=== PATIENT | male | born 1960 | race Caucasian/White ===

== ENCOUNTER 2017-02-02 11:26 | Inpatient (IN) | payer BC ==
--- NOTE | 2017-02-02 12:19 | PDOC ---
History of Present Illness - General History Source: Patient, Family (Daughter), Old Records Exam Limitations: No Limitations - History of Present Illness Initial Comments: 02/02/17 12:44 The patient is a 56-year-old man, accompanied by his daughter, with a significant past medical history of hypertension, seizure disorder, right lower extremity deep venous thrombosis (on Coumadin) and left kidney donor transplant who presents to the emergency department via walk-in for further evaluation of loss of consciousness. Information was obtained by patient's daughter. As per daughter, the patient was standing, getting ready for his morning shower when he fell back and injured his head and loss consciousness for a brief period of time. Patient's daughter states that he had a seizure. Patient is back at baseline, but reports exquisite back pain. He took two hydrocodone tablets this morning without relief. No associated symptoms of chest pain, SOB, dizziness, lightheadedness or palpitations, nausea, vomiting, diarrhea, fever, chills, cough, visual changes, tongue biting, bowel/bladder incontinence or recent head injury. <Sri Sandhu - Last Filed: 02/02/17 15:34> - General History Source: Patient Exam Limitations: No Limitations <Yoko Rao - Last Filed: 02/02/17 16:44> - General Chief Complaint: Seizure Stated Complaint: fall/ BACK PAIN Time Seen by Provider: 02/02/17 12:04 Past History <Sri Sandhu - Last Filed: 02/02/17 15:34> - Past Medical History HTN: Yes Seizures: Yes Other medical history: rle dvt - Psycho/Social/Smoking Cessation Hx Suicidal Ideation: No Smoking Status: No Smoking History: Never smoked Number of Cigarettes Smoked Daily: 0 Hx Alcohol Use: No Drug/Substance Use Hx: No <Yoko Rao - Last Filed: 02/02/17 16:44> - Past Medical History Allergies/Adverse Reactions: Allergies Allergy/AdvReac Type Severity Reaction Status Date / Time No Known Allergies Allergy Verified 02/02/17 11:44 Home Medications: Ambulatory Orders Atorvastatin Ca [Lipitor] 10 mg PO HS 02/02/17 Cholecalciferol (Vitamin D3) [Vitamin D3] 50,000 unit PO WEEKLY 02/02/17 Edoxaban Tosylate [Savaysa] 60 mg PO DAILY 02/02/17 Hydrocodone/Acetaminophen [Lortab 5-325 mg Tablet] 1 each PO BID 02/02/17 LamoTRIgine [LaMICtal] 150 mg PO BID 02/02/17 Levetiracetam [Levetiracetam ER] 1,000 mg PO BID 02/02/17 Nebivolol [Bystolic -] 5 mg PO DAILY 02/02/17 Review of Systems - Review of Systems Able to Perform ROS?: Yes Comments:: 02/02/17 12:44 GENERAL/CONSTITUTIONAL: No: fever, chills, weakness, loss of appetite. HEAD, EYES, EARS, NOSE AND THROAT: No: change in vision, ear pain, discharge, sore throat, throat swelling. CARDIOVASCULAR: No: chest pain, lightheadedness, palpitations, syncope RESPIRATORY: No: cough, shortness of breath, wheezing, hemoptysis, stridor. GASTROINTESTINAL: No: nausea, vomiting, abdominal cramping, diarrhea, rectal bleeding, constipation. GENITOURINARY: No: dysuria, hematuria, frequency, urgency, flank pain. MUSCULOSKELETAL: Yes: Back Pain. No: neck pain, joint pain, muscle swelling or pain SKIN AND BREASTS: No: lesions, pallor, rash or easy bruising. NEUROLOGIC: Yes: Seizure No: vertigo, paresthesias, weakness ENDOCRINE: No: unexplained weight gain or loss HEMATOLOGIC/LYMPHATIC: No: anemia, easy bleeding, swelling nodes <Sri Sandhu - Last Filed: 02/02/17 15:34> *Physical Exam - Vital Signs Last Vital Signs Temp Pulse Resp BP Pulse Ox 97.7 F 87 18 133/76 100 02/02/17 11:45 02/02/17 11:45 02/02/17 11:45 02/02/17 11:45 02/02/17 11:45 - Physical Exam Comments: 02/02/17 12:44 GENERAL: Awake. Alert. The patient is in no acute distress. HEAD: +There is some redness to the back of the head. EYES: PERRLA, EOMI, sclera anicteric, conjunctiva clear. ENT: Ears normal, nares patent, oropharynx clear without exudates. Moist mucous membranes. NECK: Normal range of motion, supple without lymphadenopathy, JVD, or masses. LUNGS: Breath sounds equal, clear to auscultation bilaterally. No wheezes, and no crackles. HEART: Regular rate and rhythm, normal S1 and S2 without murmur, rub or gallop. ABDOMEN: Soft, nontender, normoactive bowel sounds. No guarding, no rebound. EXTREMITIES: Normal range of motion, no edema. No clubbing or cyanosis. No erythema, or tenderness. NEUROLOGICAL: Cranial nerves II through XII grossly intact. Normal speech. No focal neurological deficits. MUSCULOSKELETAL: There is some lumbar midline and paraspinal tenderness to palpation. No CVA tenderness SKIN: Warm, Dry, normal turgor, no rashes or lesions noted. <Sri Sandhu - Last Filed: 02/02/17 15:34> - Vital Signs Last Vital Signs Temp Pulse Resp BP Pulse Ox 97.7 F 87 18 133/76 100 02/02/17 11:45 02/02/17 11:45 02/02/17 11:45 02/02/17 11:45 02/02/17 11:45 <Yoko Rao - Last Filed: 02/02/17 16:44> Heart Score/ECG Review #1 ECG reviewed & interpreted by me at: 16:43 General ECG Interpretation: Sinus Rhythm, Normal Rate, Normal Intervals, No acute ischemic changes <Yoko Rao - Last Filed: 02/02/17 16:44> ED Treatment Course - LABORATORY CBC & Chemistry Diagram: 02/02/17 13:00 02/02/17 13:00 - RADIOLOGY Radiograph Interpretation: 02/02/17 15:34 EXAM: RAD/SPINE-LUMBAR SACRAL Interpreted by Dr. Javad Case IMPRESSION: The AP view shows 5 lumbar type vertebral bodies with L5 having very wide transverse processes. Could this represent a transitional body with attempted sacralization? The paraspinal soft tissues appear intact. There is a left-sided clips by L2. The SI joints are patent. Lateral and spot lateral view show loss of lordosis with degenerative changes and vertebral wedging. L3 shows a new compression that was not evident in the prior study of 12/30/2011. This could be the source of the patient's back pain. EXAM: CT/CERVICAL SPINE CT W/O CONTR Interpreted by Dr. Javad Case IMPRESSION: Sequential axial images were obtained to the cervical spine from the base of the skull to the thoracic inlet. Coronal and sagittal reconstructed images were also obtained. There is no evidence of fracture, subluxation or acute bony abnormalities. Moderate degenerative arthritic changes are noted at C6-7. The spinal canal is widely patent with no evidence of cord compromise. EXAM: CT/HEAD CT WITHOUT CONTRAST Interpreted by Dr. Bishop Casiano IMPRESSION: Sequential axial images were obtained from the base of the skull to the vertex. There is no evidence of acute intracranial hemorrhage, mass lesions or infarctions. 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 This appearance has not changed since a prior study of 04/30/2010. There is no evidence of fracture or acute bony abnormalities. <Sri Sandhu - Last Filed: 02/02/17 15:34> - LABORATORY CBC & Chemistry Diagram: 02/02/17 13:00 02/02/17 13:00 <Yoko Rao - Last Filed: 02/02/17 16:44> Medical Decision Making - Medical Decision Making 02/02/17 15:[address] Presley Arevalo <Sri Sandhu - Last Filed: 02/02/17 15:34> - Medical Decision Making 02/02/17 12:19 A portion of this note was documented by scribe services under my direction. I have reviewed the details of the note, within reason, and agree with the documentation with the following case summary and management plan written by me. Nursing documentation reviewed and incorporated into medical decision making 02/02/17 15:57 This patient is a 56-year-old male with a history of seizure disorder, who presents emergency department status post seizure versus syncopal event this morning. Patient has very little memory of the event, after either seizing or syncopized and he fell backwards in the bathroom striking his back and his head. Patient's daughter attempted to give him pain his own pain medications to improve his pain but this did not help No fevers No chills No chest pain No palpitations DD: Seizure, syncope, vasovagal episode, dehydration, ACS will do labs Head CT Will give pain medications Will do xray lumbar spine 02/02/17 15:58 Laboratory Tests 02/02/17 02/02/17 13:00 13:00 WBC 9.2 Hgb 15.3 Hct 45.9 Plt Count 140 Neutrophils % 79.5 Lymphocytes % 10.8 BUN 20 H Creatinine 1.0 Xray: L3 compression fracture Head CT: no acute intracranial hemorrhage Cervical Spine CT: degenerative changes C6, C7 02/02/17 16:[address] Arevalo Will admit to tele <Yoko Rao - Last Filed: 02/02/17 16:44> *DC/Admit/Observation/Transfer - Attestations Scribe Attestion: 02/02/17 12:44 Documentation prepared by Sri Sandhu, acting as medical engineer for Yoko Rao MD. <Sri Sandhu - Last Filed: 02/02/17 15:34> - Discharge Dispostion Admit: Yes <Yoko Rao - Last Filed: 02/02/17 16:44> Diagnosis at time of Disposition: Seizure - Discharge Dispostion Condition at time of disposition: Stable
[2017-02-02] MEDS ORDERED: HYDROmorphone HCL CARPU-JECT 1 MG/1 ML DISP.SYRIN IVPB ONE (12:29)
[2017-02-02] MEDS ORDERED: METHOCARBAMOL 500 MG TABLET PO ONE (12:38)
[2017-02-02] MEDS ORDERED: HYDROmorphone HCL CARPU-JECT 1 MG/1 ML DISP.SYRIN ONE (12:47)
[2017-02-02] MEDS ORDERED: METHOCARBAMOL 500 MG TABLET ONE (12:49)
[2017-02-02 13:03] LABS: BASOPHIL 0.4 % (0-2.0); EOSINOPHIL 0.4 % (0-4.5); MCH 30.2 pg (25.7-33.7); MCHC 33.4 g/dl (32.0-35.9); MEAN CELL VOLUME 90.3 fl (80-96); MEAN PLT VOLUME 8.5 fl (7.5-11.1); NEUTROPHILS 79.5 % (42.8-82.8); PLATELET COUNT 140 K/MM3 (134-434); RDW 13.4 % (11.9-15.9); WHITE BLOOD COUNT 9.2 K/mm3 (4.0-10.0)
[2017-02-02 13:31] LABS: CALCIUM 9.2 mg/dL (8.5-10.1); COCKROFT - GAULT 73.87
[2017-02-02 16:55] LABS: TROPONIN I 0.03 ng/ml (0.00-0.05)
[2017-02-02] MEDS ORDERED: PATIENT'S OWN MEDICATION (NON-FORMULARY) (Lamotrigine [Lamictal] 150 MG) PO SCH (22:00)
[2017-02-02] MEDS ORDERED: levETIRAcetam 500 MG TABLET (FP) PO ONE (22:07)
[2017-02-02] MEDS: LAMOTRIGINE 100 MG, LAMOTRIGINE 50 MG PO SCH (22:27)
[2017-02-02] MEDS: ATORVASTATIN CA 10 MG TABLET (FP) PO SCH (22:27)
[2017-02-02] MEDS: levETIRAcetam XR 500 MG TAB PO SCH (22:27)
[2017-02-03] MEDS ORDERED: ONDANSETRON 4 MG/2 ML VIAL ONE (02:14)
[2017-02-03] MEDS ORDERED: HYDROmorphone HCL CARPU-JECT 1 MG/1 ML DISP.SYRIN ONE (02:14)
[2017-02-03] MEDS: HYDROmorphone HCL CARPU-JECT 1 MG/1 ML DISP.SYRIN IVPUSH PRN ×2 (02:30→18:20)
[2017-02-03] MEDS ORDERED: ONDANSETRON 4 MG/2 ML VIAL IVPUSH ONE (02:30)
[2017-02-03] MEDS: NEBIVOLOL 5 MG TABLET (FP) PO SCH ×2 (02:32→12:00)
[2017-02-03 07:14] LABS: BASOPHIL 0.4 % (0-2.0); EOSINOPHIL 1.8 % (0-4.5); MCH 30.1 pg (25.7-33.7); MCHC 33.4 g/dl (32.0-35.9); MEAN PLT VOLUME 8.4 fl (7.5-11.1); NEUTROPHILS 60.2 % (42.8-82.8); PLATELET COUNT 134 K/MM3 (134-434); RDW 13.6 % (11.9-15.9); WHITE BLOOD COUNT 6.5 K/mm3 (4.0-10.0)
[2017-02-03 07:47] LABS: ALBUMIN 3.7 g/dl (3.4-5.0); ANION GAP 9 (8-16); CO2 31 mmol/L (21-32); COCKROFT - GAULT 73.87; GLUCOSE,RANDOM 86 mg/dL (74-106); SGOT/AST 19 U/L (15-37); SGPT/ALT 36 U/L (12-78)
[2017-02-03 07:51] LABS: ALK PHOS 81 U/L (45-117); BILIRUBIN,TOTAL 0.8 mg/dL (0.2-1.0); TOT PROT 6.5 g/dl (6.4-8.2); TROPONIN I 0.02 ng/ml (0.00-0.05)
[2017-02-03] MEDS ORDERED: levETIRAcetam 500 MG TABLET (FP) PO ONE (09:05)
[2017-02-03] MEDS: levETIRAcetam XR 500 MG TAB PO SCH ×2 (09:11→21:29)
[2017-02-03] MEDS: LAMOTRIGINE 100 MG, LAMOTRIGINE 50 MG PO SCH (09:12)
--- NOTE | 2017-02-03 09:51 | HP ---
Admitting History and Physical - Admission History of Present Illness: 56-year-old man, accompanied by his daughter, with a significant past medical history of hypertension, seizure disorder, right lower extremity deep venous thrombosis and left kidney donor transplant who presents to the emergency department via walk-in for further evaluation of loss of consciousness. Information was obtained by patient's daughter. As per daughter, the patient was standing, getting ready for his morning shower when he fell back and injured his head and loss consciousness for a brief period of time. Patient's daughter states that he had a seizure. Patient c/o back pain. No associated symptoms of chest pain, SOB, dizziness, lightheadedness or palpitations, nausea , vomiting, diarrhea, fever, chills, cough, visual changes, tongue biting, bowel /bladder incontinence or recent head injury. - Past Medical History [employer]: Yes: Seizure Cardiovascular: Yes: Deep Vein Thrombosis, HTN, Hyperlipdemia Renal/: Yes: Other (KIDNEY TRANSPLANT) Heme/Onc: Yes: Hypercoaguable State, Other (DVT) - Smoking History Smoking history: Never smoked Aproximately how many cigarettes per day: 0 - Alcohol/Substance Use Hx Alcohol Use: No Home Medications - Allergies Allergies/Adverse Reactions: Allergies Allergy/AdvReac Type Severity Reaction Status Date / Time No Known Allergies Allergy Verified 02/02/17 11:44 - Home Medications Home Medications: Ambulatory Orders Atorvastatin Ca [Lipitor] 10 mg PO HS 02/02/17 Cholecalciferol (Vitamin D3) [Vitamin D3] 50,000 unit PO WEEKLY 02/02/17 Edoxaban Tosylate [Savaysa] 60 mg PO DAILY 02/02/17 Hydrocodone/Acetaminophen [Lortab 5-325 mg Tablet] 1 each PO BID 02/02/17 LamoTRIgine [LaMICtal] 150 mg PO BID 02/02/17 Levetiracetam [Levetiracetam ER] 1,000 mg PO BID 02/02/17 Nebivolol [Bystolic -] 5 mg PO DAILY 02/02/17 Review of Systems - Review of Systems Gastrointestinal: reports: No Symptoms Genitourinary: reports: No Symptoms Musculoskeletal: reports: Back Pain Neurological: reports: Change in LOC, Seizure, Unsteady Gait, Weakness Physical Examination Vital Signs: Vital Signs Temperature 98.2 F 02/03/17 09:00 Pulse Rate 67 02/03/17 09:00 Respiratory Rate 18 02/03/17 09:00 Blood Pressure 154/74 02/03/17 09:00 O2 Sat by Pulse Oximetry (%) 98 02/03/17 09:00 HENT: Yes: Normocephalic Neck: Yes: Supple Cardiovascular: Yes: Regular Rate and Rhythm Respiratory: Yes: Regular, CTA Bilaterally Gastrointestinal: Yes: Normal Bowel Sounds, Soft Musculoskeletal: Yes: Back Pain, Other (PAIN OF THE LUMBAR SPINE) Edema: Yes Edema: RLE: 1+ Labs: CBC, BMP 02/03/17 06:15 02/03/17 06:15 Imaging - Results X-ray: Report Reviewed (COMPRESION FRACTURE) Cat Scan: Report Reviewed (HEAD NAD) Problem List - Problems (1) Seizure Assessment/Plan: CHECK LEVELS CONTINUE WITH CURRENT MEDS NEURO Code(s): R56.9 - UNSPECIFIED CONVULSIONS (2) Syncope and collapse Assessment/Plan: ABOVE R/O SYNCOPE---CARDIO Code(s): R55 - SYNCOPE AND COLLAPSE (3) Compression fracture Assessment/Plan: MRI OF LS NEURO PAIN CONTROL Code(s): BQR2748 - (4) DVT (deep venous thrombosis) Assessment/Plan: HOLD OFF ON AC PENDING REPEAT CT HEM Code(s): I82.409 - ACUTE EMBOLISM AND THOMBOS UNSP DEEP VN UNSP LOWER EXTREMITY
--- NOTE | 2017-02-03 14:14 | EKG ---
Test Reason : Blood Pressure : / mmHG Vent. Rate : 070 BPM Atrial Rate : 070 BPM P-R Int : 144 ms QRS Dur : 082 ms QT Int : 372 ms P-R-T Axes : 063 046 058 degrees QTc Int : 401 ms NORMAL SINUS RHYTHM POSSIBLE LEFT ATRIAL ENLARGEMENT BORDERLINE ECG WHEN COMPARED WITH ECG OF 22-DEC-2008 07:35, NO SIGNIFICANT CHANGE WAS FOUND Confirmed by DESMOND AGRAWAL MD ([id number]) on 02/03/2017 2:13:56 PM Referred By: Confirmed By:DESMOND AGRAWAL MD
--- NOTE | 2017-02-03 14:31 | CON.CARD ---
Consult Consult Specialty:: Cardiology Referred by:: Mickey Reason for Consultation:: Syncope - History of Present Illness History of Present Illness: 56 M with DVT, seizure DO, HTN who was admitted after sudden LOC at home in the Rbathroom witnessed by DTR who reports seizure like activity after he passed out. Typical of his seizure history. No prodrome. He hit his lower back and had back pain after fall with possible lumbar compression fracture. No prior cardiac history and has good ambulatory capacity prior to the fall. No palpitations, chest pain. 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 Cardio/Vascular: Yes: Deep Vein Thrombosis, HTN, Hyperlipdemia Renal/: Yes: Other (KIDNEY TRANSPLANT) - Alcohol/Substance Use Hx Alcohol Use: No - Smoking History Smoking history: Never smoked Aproximately how many cigarettes per day: 0 Home Medications - Allergies Allergies/Adverse Reactions: Allergies Allergy/AdvReac Type Severity Reaction Status Date / Time No Known Allergies Allergy Verified 02/02/17 11:44 - Home Medications Home Medications: Ambulatory Orders Atorvastatin Ca [Lipitor] 10 mg PO HS 02/02/17 Cholecalciferol (Vitamin D3) [Vitamin D3] 50,000 unit PO WEEKLY 02/02/17 Edoxaban Tosylate [Savaysa] 60 mg PO DAILY 02/02/17 Hydrocodone/Acetaminophen [Lortab 5-325 mg Tablet] 1 each PO BID 02/02/17 LamoTRIgine [LaMICtal] 150 mg PO BID 02/02/17 Levetiracetam [Levetiracetam ER] 1,000 mg PO BID 02/02/17 Nebivolol [Bystolic -] 5 mg PO DAILY 02/02/17 Review of Systems - Review of Systems Constitutional: reports: No Symptoms Eyes: reports: No Symptoms HENT: reports: No Symptoms Neck: reports: No Symptoms Cardiovascular: reports: No Symptoms Respiratory: reports: No Symptoms Gastrointestinal: reports: No Symptoms Genitourinary: reports: No Symptoms Vital Signs: Vital Signs Temperature 98.2 F 02/03/17 09:00 Pulse Rate 62 02/03/17 12:22 Respiratory Rate 18 02/03/17 12:22 Blood Pressure 141/60 02/03/17 12:22 O2 Sat by Pulse Oximetry (%) 98 02/03/17 12:22 Constitutional: Yes: Well Nourished Eyes: Yes: WNL HENT: Yes: WNL Neck: Yes: WNL Respiratory: Yes: WNL Gastrointestinal: Yes: WNL Cardiovascular: Yes: WNL, Regular Rate and Rhythm JVD: No Carotid Bruit: No PMI: Non-Displaced Heart Sounds: Yes: S1, S2 Extremities: Yes: WNL Edema: No Peripheral Pulses WNL: Yes - Other Data Labs, Other Data: CBC, BMP 02/03/17 06:15 02/03/17 06:15 Troponin, BNP 02/02/17 02/03/17 16:10 06:15 Troponin I 0.03 0.02 D Troponin, BNP 02/02/17 02/03/17 16:10 06:15 Troponin I 0.03 0.02 D NSR no STT changes Imaging - Results X-ray: Report Reviewed Cat Scan: Report Reviewed EKG: Image Reviewed Problem List - Problems (1) Syncope and collapse Assessment/Plan: Consistent with seizure. Telemetry is normal ECG and exam without significant findings. Neuro eval. is planned. Resume AC once bleeding is excluded. Will see as needed. Code(s): R55 - SYNCOPE AND COLLAPSE
[2017-02-03 17:21] VITALS: BMI 21.1
[2017-02-03] MEDS ORDERED: BISACODYL 5 MG TABLET.DR (FP) PO ONE (21:00)
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
[2017-02-03] MEDS ORDERED: PT OWN MED DRAWER 7, Y5N ONE (21:24)
[2017-02-03] MEDS: POLYETHYLENE GLYCOL 3350 119 GM BTL PO SCH (21:28)
[2017-02-03] MEDS: ATORVASTATIN CA 10 MG TABLET (FP) PO SCH (21:29)
[2017-02-03] MEDS: lamoTRIgine 100 MG TABLET (FP) PO SCH (21:30)
[2017-02-04 07:50] LABS: INR 1.37 (0.82-1.09); PROTHROMBIN TIME (PATIENT) 15.2 SEC (9.98-11.88)
[2017-02-04 07:53] LABS: ACTIVATED PTT 36.1 SECONDS (26.9-34.4)
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
[2017-02-04] MEDS: NEBIVOLOL 5 MG TABLET (FP) PO SCH (09:37)
[2017-02-04] MEDS: SAVAYSA 60 MG PO SCH (09:37)
[2017-02-04] MEDS: lamoTRIgine 100 MG TABLET (FP) PO SCH ×2 (09:37→21:31)
[2017-02-04] MEDS: levETIRAcetam XR 500 MG TAB PO SCH ×2 (09:37→21:32)
[2017-02-04] MEDS: POLYETHYLENE GLYCOL 3350 119 GM BTL PO SCH (09:43)
[2017-02-04] MEDS: traMADol HCL 50 MG TABLET PO PRN ×2 (12:19→20:26)
--- NOTE | 2017-02-04 12:28 | PN ---
Progress Note, Physician Chief Complaint: Seizure History of Present Illness: Patient came in with Seizures. is doing well ow. Head CT negative. Anticoagulation Swaysa restarted. - Current Medication List Current Medications: Active Medications Atorvastatin Calcium (Lipitor -) 10 mg PO HS [facility] Last Admin: 02/03/17 21:29 Dose: 10 mg Lamotrigine (Lamictal -) 200 mg PO BID [facility] Last Admin: 02/04/17 09:37 Dose: 200 mg Levetiracetam (Keppra Xr -) 1,000 mg PO BID [facility] Last Admin: 02/04/17 09:37 Dose: 1,000 mg Nebivolol (Bystolic -) 5 mg PO DAILY [facility] Last Admin: 02/04/17 09:37 Dose: 5 mg Savaysa 60 Mg Tablet (- Patient Own Med) 1 each PO DAILY [facility] Last Admin: 02/04/17 09:37 Dose: 1 each Polyethylene Glycol (Miralax (For Daily Use) -) 17 gm PO DAILY [facility] Last Admin: 02/04/17 09:43 Dose: 17 grams Tramadol HCl (Ultram -) 50 mg PO Q8H PRN PRN Reason: PAIN Last Admin: 02/04/17 12:19 Dose: 50 mg - Objective Vital Signs: Vital Signs Temperature 98.4 F 02/04/17 08:36 Pulse Rate 98 H 02/04/17 08:36 Respiratory Rate 18 02/04/17 08:36 Blood Pressure 114/60 02/04/17 08:36 O2 Sat by Pulse Oximetry (%) 97 02/04/17 09:00 Constitutional: Yes: Well Nourished, No Distress, Calm Cardiovascular: Yes: Regular Rate and Rhythm Respiratory: Yes: Regular Gastrointestinal: Yes: Normal Bowel Sounds Musculoskeletal: Yes: Back Pain (secondary to compression fracture) Extremities: Yes: WNL Peripheral Pulses WNL: No Integumentary: Yes: WNL Neurological: Yes: Alert, Oriented Psychiatric: Yes: Alert, Oriented Labs: CBC, BMP 02/03/17 06:15 02/03/17 06:15 INR, PTT INR 1.37 (0.82-1.09) H 02/04/17 06:20 Problem List - Problems (1) Compression fracture Assessment/Plan: Pain management. MRI suggested by neurosurgery. Patient states, he was told by his surgeon not to get MRI due to dental plate he had place over 15 years ago. Code(s): RNH9854 - (2) DVT (deep venous thrombosis) Assessment/Plan: Restart Savaysa as head CT is negative. Code(s): I82.409 - ACUTE EMBOLISM AND THOMBOS UNSP DEEP VN UNSP LOWER EXTREMITY (3) Seizure Assessment/Plan: As managed by Neurology. On keppra and lamotrigine. Code(s): R56.9 - UNSPECIFIED CONVULSIONS (4) Syncope and collapse Assessment/Plan: Echo and Head CT non significant. Code(s): R55 - SYNCOPE AND COLLAPSE Assessment/Plan Patient is refusing MRI due to dental plate implant. Restarted on anticoagulation Pain management Physical therapy D/C if cleared by neurology and neurosurgery and follow up as outpatient
--- NOTE | 2017-02-04 12:59 | EKG ---
Test Reason : Blood Pressure : / mmHG Vent. Rate : 064 BPM Atrial Rate : 064 BPM P-R Int : 142 ms QRS Dur : 084 ms QT Int : 394 ms P-R-T Axes : 058 055 055 degrees QTc Int : 406 ms NORMAL SINUS RHYTHM NORMAL ECG WHEN COMPARED WITH ECG OF 02-FEB-2017 16:29, NO SIGNIFICANT CHANGE WAS FOUND Confirmed by CODY HUFF MD ([id number]) on 02/04/2017 12:58:34 PM Referred By: CHANTEL JAMES Confirmed By:CODY HUFF MD
[2017-02-04] MEDS: LIDOCAINE 5% TOPICAL PATCH TP SCH (14:56)
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
[2017-02-04] MEDS ORDERED: PT OWN MED DRAWER 7, Y5N ONE (21:27)
[2017-02-04] MEDS: ATORVASTATIN CA 10 MG TABLET (FP) PO SCH (21:32)
[2017-02-04] MEDS ORDERED: LIDOCAINE PATCH REMOVAL MC SCH (22:00)
[2017-02-05] MEDS: traMADol HCL 50 MG TABLET PO PRN (06:46)
[2017-02-05] MEDS: LIDOCAINE 5% TOPICAL PATCH TP SCH (09:10)
[2017-02-05] MEDS: NEBIVOLOL 5 MG TABLET (FP) PO SCH (09:11)
[2017-02-05] MEDS: lamoTRIgine 100 MG TABLET (FP) PO SCH (09:11)
[2017-02-05] MEDS: levETIRAcetam XR 500 MG TAB PO SCH (09:11)
[2017-02-05] MEDS: SAVAYSA 60 MG PO SCH (09:14)
[2017-02-05] MEDS: POLYETHYLENE GLYCOL 3350 119 GM BTL PO SCH (09:18)
[2017-02-05 09:19] VITALS: BP 136/78; PULSE 98; TEMP 98.2
--- NOTE | 2017-02-05 09:25 | PN ---
Progress Note (short form) - Note Progress Note: NEUROSURGERY Some LBP PE: AF, VSS HEENT- NC/AT; Neck- supple; Cor- RR; Lungs- CTA B; Abd- benign; Ext- No sign of DVT A/A/Ox3; speech stuttering at times CN- intact; Motor- 5/5 without drift; Sensation- intact LT/vibration; DTR- 1+ Back- tender mid-low axial lumbar spine Head CT 02-02 and 02-03: R > L frontal orbito-frontal encephalomalacia; no fx, no bleed Head CT 2008: same findings as above LS spine x-rays: L2 sup endplate fx, sacralized L5 CT LS spine: L2 sup endplate fx, facet hypertrophy with moderate L4-5 and L3-4 central and lateral recess stenosis Sz disorder s/p fall with L2 fx Neurology f/u with anticonvulsant regimen Pain meds Sz treatment/med regimen per neurology PT Wear OTC lumbar support for pain/postural control F/U LS spine x-rays in 2 weeks to assess L2 vertebral height and alignment
[2017-02-05] MEDS ORDERED: MINERAL OIL ENEMA 133 ML ENEMA PR ONE (10:56)
--- NOTE | 2017-02-05 11:01 | DS ---
Physical Examination Vital Signs: Vital Signs Temperature 98.2 F 02/05/17 09:18 Pulse Rate 98 H 02/05/17 09:18 Respiratory Rate 16 02/05/17 09:18 Blood Pressure 136/78 02/05/17 09:18 O2 Sat by Pulse Oximetry (%) 97 02/04/17 21:00 Constitutional: Yes: Calm, Thin, Other (ambulating in hallway) Cardiovascular: Yes: Regular Rate and Rhythm, S1, S2 Respiratory: Yes: CTA Bilaterally Gastrointestinal: Yes: Normal Bowel Sounds, Soft Musculoskeletal: Yes: Back Pain Edema: No Psychiatric: Yes: Alert, Oriented Labs: CBC, BMP 02/03/17 06:15 02/03/17 06:15 Discharge Summary Reason For Visit: SEIZURE Current Active Problems Compression fracture (Acute) DVT (deep venous thrombosis) (Acute) Seizure (Acute) Syncope and collapse (Acute) Hospital Course: 56-year-old man, accompanied by his daughter, with a significant past medical history of hypertension, seizure disorder, right lower extremity deep venous thrombosis and left kidney donor transplant who presents to the emergency department via walk-in for further evaluation of loss of consciousness. Information was obtained by patient's daughter. As per daughter, the patient was standing, getting ready for his morning shower when he fell back and injured his head and loss consciousness for a brief period of time. Patient's daughter states that he had a seizure. Patient c/o back pain. No associated symptoms of chest pain, SOB, dizziness, lightheadedness or palpitations, nausea , vomiting, diarrhea, fever, chills, cough, visual changes, tongue biting, bowel /bladder incontinence or recent head injury. 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 Cardiovascular: Yes: Deep Vein Thrombosis, HTN, Hyperlipdemia Renal/: Yes: Other (KIDNEY TRANSPLANT) Heme/Onc: Yes: Hypercoaguable State, Other (DVT) Condition: Guarded - Instructions Diet, Activity, Other Instructions: lumbar spine xrays in 2 weeks wear lumbar back brace- buy over the counter for back support Referrals: Antonio Carty MD [Primary Care Provider] - 1 Week Steve Hanson MD [Staff Physician] - 2 Weeks Disposition: VNS/HOME HEALTH CARE - Home Medications Comprehensive Discharge Medication List: Ambulatory Orders Atorvastatin Ca [Lipitor] 10 mg PO HS 02/02/17 Cholecalciferol (Vitamin D3) [Vitamin D3] 50,000 unit PO WEEKLY 02/02/17 Edoxaban Tosylate [Savaysa] 60 mg PO DAILY 02/02/17 Hydrocodone/Acetaminophen [Lortab 5-325 mg Tablet] 1 each PO BID 02/02/17 LamoTRIgine [LaMICtal] 150 mg PO BID 02/02/17 Levetiracetam [Levetiracetam ER] 1,000 mg PO BID 02/02/17 Nebivolol [Bystolic -] 5 mg PO DAILY 02/02/17
== END 2017-02-05 15:25 | disposition home health service (06) | DRG 101 ==
LOC: JER 11:26 → JERBED 16:00 → J4S 02-03 13:11
PROVIDERS: ADMIT Family Medicine; ATTEND Family Medicine
DX: G40.909 Epilepsy, unspecified, not intractable, without status epilepticus (principal); S32.019A Unspecified fracture of first lumbar vertebra, initial encounter for closed fracture; D68.59 Other primary thrombophilia; Z94.0 Kidney transplant status; I10 Essential (primary) hypertension; R55 Syncope and collapse; E78.5 Hyperlipidemia, unspecified; W18.30XA Fall on same level, unspecified, initial encounter; Y92.008 Other place in unspecified non-institutional (private) residence as the place of occurrence of the external cause; Z86.718 Personal history of other venous thrombosis and embolism; Z79.01 Long term (current) use of anticoagulants
CPT/HCPCS: 36415; 70450-TC; 72100-TC; 72125-TC; 72131-TC; 76775-TC; 80048; 80053; 82550; 83036; 84484; 85025; 85610; 85730; 93005; 93010; 93306-TC; 97116-GP; 97162; 99285-25

== ENCOUNTER 2018-01-19 22:04 | Emergency (ER) | payer BC ==
[2018-01-19 22:22] VITALS: PULSE 82; TEMP 98.2; BMI 22.1
[2018-01-19 22:46] VITALS: BP 157/93
--- NOTE | 2018-01-19 23:45 | PDOC ---
History of Present Illness - History of Present Illness Initial Comments: 01/19/18 23:46 The patient is a 57 year old male with history of hypertension, hyperlipidemia, on oral AC for DVT, who presents to the ED s/p head injury this morning. The patient states he fell back and hit the top of his head. He denies any headache , blurred vision, or numbness or tingling. He denies nausea, vomiting, or diaphoresis. He denies any neck or back pain. <Rianna Vargas - Last Filed: 01/20/18 00:41> - General History Source: Patient <OlmanJerod love - Last Filed: 01/20/18 19:24> - General Chief Complaint: Pain Stated Complaint: HEAD INJURY Time Seen by Provider: 01/19/18 23:44 Past History <Rianna Vargas - Last Filed: 01/20/18 00:41> - Past Medical History COPD: No DVT: Yes HTN: Yes Hypercholesterolemia: Yes Seizures: Yes (Post traumatic seizures) - Suicide/Smoking/Psychosocial Hx Smoking Status: No Smoking History: Never smoked Have you smoked in the past 12 months: No Number of Cigarettes Smoked Daily: 0 Information on smoking cessation initiated: No Hx Alcohol Use: No Drug/Substance Use Hx: No Substance Use Type: None Hx Substance Use Treatment: No <Jerod Lawler - Last Filed: 01/20/18 19:24> - Past Medical History Allergies/Adverse Reactions: Allergies Allergy/AdvReac Type Severity Reaction Status Date / Time No Known Allergies Allergy Verified 01/19/18 22:17 Home Medications: Ambulatory Orders Atorvastatin Ca [Lipitor] 10 mg PO HS 02/02/17 Cholecalciferol (Vitamin D3) [Vitamin D3] 50,000 unit PO WEEKLY 02/02/17 Edoxaban Tosylate [Savaysa] 60 mg PO DAILY 02/02/17 Levetiracetam [Levetiracetam ER] 1,000 mg PO BID 02/02/17 Nebivolol [Bystolic -] 5 mg PO DAILY 02/02/17 Lamotrigine [Lamictal] 200 mg PO BID #30 tablet 02/05/17 traMADol HCL [Ultram -] 50 mg PO Q8H PRN #10 tablet MDD 3 02/05/17 Review of Systems - Review of Systems Able to Perform ROS?: Yes Comments:: 01/20/18 00:02 GENERAL/CONSTITUTIONAL: No fever or chills. No weakness. HEAD, EYES, EARS, NOSE AND THROAT: No change in vision. No ear pain or discharge. No sore throat. CARDIOVASCULAR: No chest pain or shortness of breath. RESPIRATORY: No cough, wheezing, or hemoptysis. GASTROINTESTINAL: No nausea, vomiting, diarrhea or constipation. GENITOURINARY: No dysuria, frequency, or change in urination. MUSCULOSKELETAL: No joint or muscle swelling or pain. No neck or back pain. SKIN: No rash NEUROLOGIC: No headache, vertigo, loss of consciousness, or change in strength/ sensation. ENDOCRINE: No increased thirst. No abnormal weight change. HEMATOLOGIC/LYMPHATIC: No anemia, easy bleeding, or history of blood clots. ALLERGIC/IMMUNOLOGIC: No hives or skin allergy. <Rianna Vargas - Last Filed: 01/20/18 00:41> *Physical Exam - Vital Signs Last Vital Signs Temp Pulse Resp BP Pulse Ox 98.2 F 82 18 157/93 98 01/19/18 22:18 01/19/18 22:18 01/19/18 22:18 01/19/18 22:45 01/19/18 22:18 - Physical Exam Comments: 01/20/18 00:05 GENERAL: Awake, alert, and fully oriented, in no acute distress HEAD: +1 cm hematoma to the superior occipital scalp. EYES: PERRLA, EOMI, sclera anicteric, conjunctiva clear. No raccoon eyes. ENT: Auricles normal inspection, hearing grossly normal, nares patent, oropharynx clear without exudates. Moist mucosa NECK: Normal ROM, supple, no lymphadenopathy, JVD, or masses. No midline cervical spine tenderness. LUNGS: Breath sounds equal, clear to auscultation bilaterally. No wheezes, and no crackles HEART: Regular rate and rhythm, normal S1 and S2, no murmurs, rubs or gallops ABDOMEN: Soft, nontender, normoactive bowel sounds. No guarding, no rebound. No masses EXTREMITIES: Normal range of motion, no edema. No clubbing or cyanosis. No cords, erythema, or tenderness NEUROLOGICAL: Cranial nerves II through XII grossly intact. Normal speech, normal gait SKIN: Warm, Dry, normal turgor, no rashes or lesions noted. <Rianna Vargas - Last Filed: 01/20/18 00:41> - Vital Signs Last Vital Signs Temp Pulse Resp BP Pulse Ox 98.2 F 82 18 157/93 98 01/19/18 22:18 01/19/18 22:18 01/19/18 22:18 01/19/18 22:45 01/19/18 22:18 <Jerod Lawler - Last Filed: 01/20/18 19:24> Medical Decision Making - Medical Decision Making 01/20/18 00:[address], preliminary interpretation by [facility] [employer]. 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 Smaller old left inferior frontal infarct noted. No hemorrhage. No mass. Osseous structures are intact. There are involutional changes slightly out of proportion to relatively young age <Rianna Vargas - Last Filed: 01/20/18 00:41> - Medical Decision Making 01/20/18 19:24 Dr. Lawler: The scribe's documentation has been prepared under my direction and personally reviewed by me in its entirery. I confirm that the note above accurately reflects all work, treatment, procedures, and medical decision making performed by me. <Jerod Lawler - Last Filed: 01/20/18 19:24> *DC/Admit/Observation/Transfer - Attestations Scribe Attestion: 01/20/18 00:06 Documentation prepared by Rianna Vargas, acting as medical psychotherapist for Jerod Lawler DO. <Rianna Vargas - Last Filed: 01/20/18 00:41> - Discharge Dispostion Decision to Admit order: No <Jerod Lawler - Last Filed: 01/20/18 19:24> Diagnosis at time of Disposition: Closed head injury Qualifiers: Encounter type: initial encounter Qualified Code(s): S09.90XA - Unspecified injury of head, initial encounter - Discharge Dispostion Disposition: HOME Condition at time of disposition: Stable - Referrals Referrals: Ilya Alvarez [Primary Care Provider] - - Patient Instructions Printed Discharge Instructions: DI for Closed Head Injury Additional Instructions: Please continue all medications as usual. Return if any problems Print Language: [place] - Post Discharge Activity
== END 2018-01-20 00:44 | disposition home or self-care (01) ==
LOC: JER 22:04
DX: S09.90XA Unspecified injury of head, initial encounter (principal); W18.39XA Other fall on same level, initial encounter; Y93.89 Activity, other specified; Y92.9 Unspecified place or not applicable; I10 Essential (primary) hypertension; E78.00 Pure hypercholesterolemia, unspecified; Z86.718 Personal history of other venous thrombosis and embolism
CPT/HCPCS: 70450-TC; 99282-25

== ENCOUNTER 2019-09-03 10:18 | Emergency (ER) | payer OTHER ==
[2019-09-03 10:34] VITALS: BP 122/61; PULSE 84; TEMP 97.9; BMI 22.0
--- NOTE | 2019-09-03 10:55 | PDOC ---
History of Present Illness - General Chief Complaint: Injury Stated Complaint: FALL / PAIN Time Seen by Provider: 09/03/19 10:44 History Source: Patient Exam Limitations: No Limitations Past History - Travel Traveled outside of the country in the last 30 days: No Close contact w/someone who was outside of country & ill: No - Past Medical History Allergies/Adverse Reactions: Allergies Allergy/AdvReac Type Severity Reaction Status Date / Time No Known Allergies Allergy Verified 09/03/19 10:25 Home Medications: Ambulatory Orders Atorvastatin Ca [Lipitor] 10 mg PO HS 02/02/17 Cholecalciferol (Vitamin D3) [Vitamin D3] 50,000 unit PO WEEKLY 02/02/17 Edoxaban Tosylate [Savaysa] 60 mg PO DAILY 02/02/17 levETIRAcetam [Levetiracetam ER] 1,000 mg PO BID 02/02/17 Lamotrigine [Lamictal] 200 mg PO BID #30 tablet 02/05/17 Metoprolol Succinate [Toprol Xl -] 100 mg PO DAILY 09/03/19 Spirometers and Accessories [Mistassist] 1 each MC ACDIN 7 Days #1 each COPD: No DVT: Yes HTN: Yes Hypercholesterolemia: Yes Seizures: Yes (Post traumatic seizures) - Psycho Social/Smoking Cessation Hx Smoking Status: No Smoking History: Never smoked Have you smoked in the past 12 months: No Number of Cigarettes Smoked Daily: 0 Hx Alcohol Use: No Drug/Substance Use Hx: No Substance Use Type: None Hx Substance Use Treatment: No Review of Systems - Review of Systems Constitutional: No: Chills, Fever Respiratory: No: Shortness of Breath, SOB with Exertion, Productive cough Cardiac (ROS): No: Chest Pain, Irregular Heart Rate, Lightheadedness, Palpitations, Syncope, Chest Tightness Neurological: No: Dizziness *Physical Exam - Vital Signs Last Vital Signs Temp Pulse Resp BP Pulse Ox 97.9 F 84 18 122/61 98 09/03/19 10:26 09/03/19 10:26 09/03/19 10:26 09/03/19 10:26 09/03/19 10:26 - Physical Exam General Appearance: Yes: Nourished HEENT: positive: EOMI Respiratory/Chest: positive: Lungs Clear, Normal Breath Sounds, Other (+ tenderness on palpation long left ribs 5-7 region, no eccymosis noted) Cardiovascular: positive: Regular Rhythm, Regular Rate, S1, S2 Integumentary: positive: Normal Color, Dry 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 Presents with left rib pain after accidentally hitting his chest against a shelf at home yesterday. 09/03/19 10:55 09/03/19 12:17 X-rays was normal. Incentive spirometer sent to pharmacy. Discharge - Discharge Information Problems reviewed: Yes Clinical Impression/Diagnosis: Rib pain on left side Condition: Stable Disposition: HOME - Admission No - Additional Discharge Information Plan of Treatment: Your x-rays were normal Please use incentive spirometry as prescribed. Take Tylenol for pain. Follow- up with your primary care doctor. Return to the emergency room if worsening symptoms occurs Prescriptions: Spirometers and Accessories [Mistassist] 1 each MC ACDIN 7 Days #1 each Prescription Drug Monitoring Program (I-STOP) results: I-STOP not reviewed - Follow up/Referral Referrals: Ilya Alvarez [Primary Care Provider] - - Patient Discharge Instructions Patient Printed Discharge Instructions: DI for Rib Contusion - Post Discharge Activity
== END 2019-09-03 12:16 | disposition home or self-care (01) ==
LOC: JERFT 10:18 → JER 10:18 → JERFT 12:16
DX: S29.8XXA Other specified injuries of thorax, initial encounter (principal); R07.81 Pleurodynia; W22.8XXA Striking against or struck by other objects, initial encounter; Y93.89 Activity, other specified; Y92.018 Other place in single-family (private) house as the place of occurrence of the external cause; Y99.8 Other external cause status; I10 Essential (primary) hypertension; E78.00 Pure hypercholesterolemia, unspecified; R56.1 Post traumatic seizures; Z86.718 Personal history of other venous thrombosis and embolism; Z79.01 Long term (current) use of anticoagulants
CPT/HCPCS: 71046-TC-FY; 71101-TC-LT-FY; 99281-25

== ENCOUNTER 2020-08-06 21:25 | Emergency (ER) | payer OTHER ==
[2020-08-06 21:42] VITALS: BMI 24.9
[2020-08-06] MEDS ORDERED: morphine CARPU-JECT 2 MG/1 ML DISP.SYRIN IVPUSH ONE (22:08)
[2020-08-06] MEDS ORDERED: morphine SULFATE 4 MG/ML VIAL ONE (22:24)
[2020-08-06 22:36] LABS: BASO % 0.5 % (0-2.0); EOS % 0.8 % (0-4.5); HEMOGLOBIN 14.3 GM/dL (11.7-16.9); LYMPH % 17.2 % (8-40); MCH 29.7 pg (25.7-33.7); MCHC 32.6 g/dl (32.0-35.9); MEAN CELL VOLUME 91.4 fl (80-96); MEAN PLT VOLUME 8.1 fl (7.5-11.1); NEUT % 71.5 % (42.8-82.8); PLATELET COUNT 185 K/MM3 (134-434); RBC 4.81 M/mm3 (4.00-5.60)
[2020-08-06 22:43] LABS: INR 0.97 (0.83-1.09); PROTHROMBIN TIME (PATIENT) 11.8 SEC (9.7-13.0)
[2020-08-06 22:46] LABS: ACTIVATED PTT 29.6 SECONDS (25.2-36.5)
[2020-08-06 22:58] LABS: ALBUMIN 3.7 g/dl (3.4-5.0); BLOOD UREA NITROGEN 19.2 mg/dL (7-18)
[2020-08-06 23:01] LABS: CREATININE 1.1 mg/dL (0.55-1.3)
[2020-08-06 23:03] LABS: BILIRUBIN,TOTAL 0.4 mg/dL (0.2-1); TOT PROT 6.9 g/dl (6.4-8.2)
[2020-08-07 00:35] VITALS: PULSE 105
[2020-08-07] MEDS ORDERED: morphine CARPU-JECT 2 MG/1 ML DISP.SYRIN IVPUSH ONE (00:36)
[2020-08-07] MEDS ORDERED: morphine SULFATE 4 MG/ML VIAL ONE (00:40)
[2020-08-07 01:23] VITALS: TEMP 98.6
[2020-08-07 01:24] VITALS: BP 176/73
== END 2020-08-07 01:24 | disposition short-term general hospital (02) ==
LOC: JER 21:25
PROC: 3E033NZ Introduction of Analgesics, Hypnotics, Sedatives into Peripheral Vein, Percutaneous Approach (ICD-10-PCS; principal; 2020-08-06)
PROC: 3E033NZ Introduction of Analgesics, Hypnotics, Sedatives into Peripheral Vein, Percutaneous Approach (ICD-10-PCS; 2020-08-06)
DX: S09.90XA Unspecified injury of head, initial encounter (principal); J90 Pleural effusion, not elsewhere classified; S27.329A Contusion of lung, unspecified, initial encounter; S36.113A Laceration of liver, unspecified degree, initial encounter
CPT/HCPCS: 36415; 70450-TC; 71250-TC; 72125-TC; 80053; 85025; 85610; 85730; 93005; 93010; 99285-25

== ENCOUNTER 2021-04-30 12:31 | Inpatient (IN) | payer OTHER ==
[2021-04-30 12:33] VITALS: BMI 23.8
[2021-04-30 14:00] LABS: BASO % 0.3 % (0-2.0); EOS % 0.8 % (0-4.5); HEMATOCRIT 42.5 % (35.4-49); HEMOGLOBIN 14.6 GM/dL (11.7-16.9); MCH 30.9 pg (25.7-33.7); MCHC 34.4 g/dl (32.0-35.9); MONO % 13.4 % (3.8-10.2); NEUT % 51.5 % (42.8-82.8); PLATELET COUNT 171 10^3/uL (134-434); RBC 4.72 M/mm3 (4.00-5.60); RDW 13.4 % (11.9-15.9); WHITE BLOOD COUNT 5.5 K/mm3 (4.0-10.0)
[2021-04-30 14:06] LABS: INR 1.05 (0.83-1.09); PROTHROMBIN TIME (PATIENT) 12.7 SEC (9.7-13.0)
[2021-04-30 14:09] LABS: ACTIVATED PTT 34.2 SECONDS (25.2-36.5)
[2021-04-30 14:22] LABS: CHLORIDE 107 mmol/L (98-107); SODIUM 142 mmol/L (136-145)
[2021-04-30 14:24] LABS: ALBUMIN 3.8 g/dl (3.4-5.0); ANION GAP 4 MMOL/L (8-16); BLOOD UREA NITROGEN 15.8 mg/dL (7-18); CO2 31 mmol/L (21-32); GLUCOSE,RANDOM 82 mg/dL (74-106)
[2021-04-30 14:27] LABS: CREATININE 1.2 mg/dL (0.55-1.3); SGOT/AST 13 U/L (15-37); SGPT/ALT 33 U/L (13-61)
[2021-04-30 14:28] LABS: BILIRUBIN,TOTAL 0.6 mg/dL (0.2-1)
[2021-04-30 14:28] LABS: EPI CELLS 1 /uL (0-25.1); HYALINE CASTS 0 /uL (0-3.1); PH,URINE 6.5 (5.0-8.0); URINE APPEARANCE CLEAR; URINE BACTERIA 2 /uL (0-1359); URINE BILIRUBIN NEGATIVE (NEGATIVE); URINE COLOR YELLOW; URINE GLUCOSE (UA) NEGATIVE (NEGATIVE); URINE KETONE NEGATIVE (NEGATIVE); URINE LEUK ESTERASE NEGATIVE (NEGATIVE); URINE NITRITE NEGATIVE (NEGATIVE); URINE PROTEIN NEGATIVE (NEGATIVE); URINE RBC 33 /uL (0-23.9); URINE WBC 3 /uL (0-25.8)
[2021-04-30 14:29] LABS: TOT PROT 6.8 g/dl (6.4-8.2)
[2021-04-30 14:30] LABS: ALK PHOS 85 U/L (45-117)
[2021-04-30] MEDS ORDERED: PHENYTOIN NA EXTENDED 100 MG CAPSULE (FP) PO ONE (19:03)
[2021-04-30] MEDS ORDERED: ACETAMINOPHEN 500 MG TABLET (FP) PO PRN (19:03)
[2021-04-30] MEDS ORDERED: LORazepam 2 MG/ML SDV VIAL IVPUSH PRN (19:15)
[2021-04-30] MEDS ORDERED: HEPARIN NA (PORCINE) 5,000 UNITS/ML 1ML VIAL ONE (20:49)
[2021-04-30] MEDS ORDERED: levETIRAcetam 500 MG TABLET (FP) PO ONE (20:49)
[2021-04-30] MEDS: HEPARIN NA (PORCINE) 5,000 UNITS/ML 1ML VIAL SQ SCH (21:06)
[2021-04-30] MEDS: levETIRAcetam 500 MG TABLET (FP) PO SCH (21:06)
[2021-04-30] MEDS: lamoTRIgine 100 MG TABLET PO SCH (22:58)
[2021-05-01] MEDS ORDERED: levETIRAcetam 500 MG TABLET (FP) PO ONE (09:07)
[2021-05-01] MEDS ORDERED: HEPARIN NA (PORCINE) 5,000 UNITS/ML 1ML VIAL ONE (09:07)
[2021-05-01] MEDS ORDERED: lamoTRIgine 100 MG TABLET ONE (09:19)
[2021-05-01] MEDS: HEPARIN NA (PORCINE) 5,000 UNITS/ML 1ML VIAL SQ SCH (09:37)
[2021-05-01] MEDS: levETIRAcetam 500 MG TABLET (FP) PO SCH ×2 (09:38→21:09)
[2021-05-01] MEDS: lamoTRIgine 100 MG TABLET PO SCH ×2 (09:38→21:10)
[2021-05-01] MEDS: CARBIDOPA/LEVODOPA 25/100 TABLET (FP) PO SCH ×2 (13:09→21:09)
[2021-05-01] MEDS: LOSARTAN POTASSIUM 25 MG TABLET PO SCH (16:13)
[2021-05-01] MEDS: EDOXABAN TOSYLATE 60 MG PO SCH (19:15)
[2021-05-01] MEDS ORDERED: PT OWN MED DRAWER 7, Y5N ONE (19:18)
[2021-05-02 08:06] LABS: BASO % 0.6 % (0-2.0); EOS % 1.5 % (0-4.5); HEMOGLOBIN 14.2 GM/dL (11.7-16.9); LYMPH % 29.2 % (8-40); MCH 30.9 pg (25.7-33.7); MCHC 34.6 g/dl (32.0-35.9); MEAN CELL VOLUME 89.4 fl (80-96); MEAN PLT VOLUME 8.4 fl (7.5-11.1); MONO % 11.2 % (3.8-10.2); NEUT % 57.5 % (42.8-82.8); PLATELET COUNT 171 10^3/uL (134-434); RBC 4.59 M/mm3 (4.00-5.60); RDW 13.4 % (11.9-15.9); WHITE BLOOD COUNT 6.8 K/mm3 (4.0-10.0)
[2021-05-02 08:29] LABS: ALBUMIN 3.5 g/dl (3.4-5.0); BLOOD UREA NITROGEN 14.4 mg/dL (7-18); CALCIUM 8.9 mg/dL (8.5-10.1); MAGNESIUM 2.1 mg/dL (1.8-2.4)
[2021-05-02 08:32] LABS: CREATININE 1.1 mg/dL (0.55-1.3)
[2021-05-02 08:34] LABS: TOT PROT 6.3 g/dl (6.4-8.2)
[2021-05-02 08:35] LABS: BILIRUBIN,TOTAL 0.6 mg/dL (0.2-1)
[2021-05-02] MEDS: LOSARTAN POTASSIUM 25 MG TABLET PO SCH (09:55)
[2021-05-02] MEDS: EDOXABAN TOSYLATE 60 MG PO SCH (09:55)
[2021-05-02] MEDS: levETIRAcetam 500 MG TABLET (FP) PO SCH ×2 (09:55→21:23)
[2021-05-02] MEDS: lamoTRIgine 100 MG TABLET PO SCH ×2 (09:55→21:23)
[2021-05-02] MEDS: CARBIDOPA/LEVODOPA 25/100 TABLET (FP) PO SCH ×2 (09:55→21:23)
[2021-05-03] MEDS ORDERED: levETIRAcetam 500 MG TABLET (FP) PO SCH (09:58)
[2021-05-03] MEDS: EDOXABAN TOSYLATE 60 MG PO SCH (10:09)
[2021-05-03] MEDS: CARBIDOPA/LEVODOPA 25/100 TABLET (FP) PO SCH (10:10)
[2021-05-03] MEDS: LOSARTAN POTASSIUM 25 MG TABLET PO SCH (10:10)
[2021-05-03] MEDS: lamoTRIgine 100 MG TABLET PO SCH (10:10)
[2021-05-03] MEDS ORDERED: PT OWN MED DRAWER 7, Y5N ONE (10:58)
[2021-05-03] MEDS ORDERED: levETIRAcetam 1,500 MG, levETIRAcetam 250 MG PO SCH (11:15)
[2021-05-03] MEDS ORDERED: levETIRAcetam 250 MG TABLET PO ONE (11:21)
[2021-05-03] MEDS ORDERED: levETIRAcetam 500 MG TABLET (FP) PO ONE (11:21)
[2021-05-03 18:21] VITALS: BP 140/89; PULSE 61; TEMP 97.4
== END 2021-05-03 20:00 | disposition home or self-care (01) | DRG 53 ==
LOC: JER 12:31 → JERBED 13:30 → J4S 05-01 11:36
PROVIDERS: ADMIT Psychiatry & Neurology Neurology; ATTEND Psychiatry & Neurology Neurology
DX: G40.909 Epilepsy, unspecified, not intractable, without status epilepticus (principal); G20 Parkinson's disease; I25.10 Atherosclerotic heart disease of native coronary artery without angina pectoris; D68.59 Other primary thrombophilia; I10 Essential (primary) hypertension; F32.9 Major depressive disorder, single episode, unspecified; E78.5 Hyperlipidemia, unspecified; I51.7 Cardiomegaly; Z86.718 Personal history of other venous thrombosis and embolism; Z87.820 Personal history of traumatic brain injury
CPT/HCPCS: 36415; 70450-TC; 71046-TC-FY; 80053; 80061; 80175; 80177; 81003; 83735; 84484; 85025; 85610; 85730; 87086; 93005; 93010; 95705; 99285-25; C9803; J1644; U0003; U0005

== ENCOUNTER 2022-05-26 13:07 | Inpatient (IN) | payer OTHER ==
[2022-05-26 13:29] VITALS: RESP 18
[2022-05-26] MEDS ORDERED: SODIUM CHLORIDE 0.9% 500 ML INFUS.BAG IV ONE (14:43)
[2022-05-26] MEDS ORDERED: morphine CARPU-JECT 4 MG/1 ML DISP.SYRIN IVPUSH PRN (14:50)
[2022-05-26] MEDS ORDERED: morphine SULFATE 4 MG/ML VIAL ONE ×2 (14:55→19:33)
[2022-05-26 15:12] LABS: BASO % 0.6 % (0-2.0); EOS % 0.9 % (0-4.5); HEMATOCRIT 42.4 % (35.4-49); HEMOGLOBIN 13.9 GM/dL (11.7-16.9); LYMPH % 24.8 % (8-40); MCH 29.8 pg (25.7-33.7); MCHC 32.9 g/dl (32.0-35.9); MEAN CELL VOLUME 90.4 fl (80-96); MEAN PLT VOLUME 8.1 fl (7.5-11.1); MONO % 11.1 % (3.8-10.2); NEUT % 62.6 % (42.8-82.8); PLATELET COUNT 236 10^3/uL (134-434); RBC 4.69 M/mm3 (4.00-5.60); RDW 15.9 % (11.9-15.9); WHITE BLOOD COUNT 9.9 K/mm3 (4.0-10.0)
[2022-05-26 15:22] LABS: INR 1.25 (0.83-1.09); PROTHROMBIN TIME (PATIENT) 14.4 SEC (9.7-13.0)
[2022-05-26 15:24] LABS: ACTIVATED PTT 33.1 SECONDS (25.2-36.5)
[2022-05-26 15:35] LABS: CALCIUM 9.2 mg/dL (8.5-10.1)
[2022-05-26 15:36] LABS: BLOOD UREA NITROGEN 18.2 mg/dL (7-18)
[2022-05-26 15:38] LABS: CREATININE 1.1 mg/dL (0.55-1.3)
[2022-05-26 15:40] LABS: BILIRUBIN,TOTAL 0.6 mg/dL (0.2-1); TOT PROT 7.2 g/dl (6.4-8.2)
[2022-05-26] MEDS ORDERED: morphine CARPU-JECT 4 MG/1 ML DISP.SYRIN IVPUSH ONE (19:10)
[2022-05-26] MEDS ORDERED: DOCUSATE SODIUM 100 MG CAPSULE (FP) PO PRN (20:40)
[2022-05-26] MEDS ORDERED: levETIRAcetam 500 MG TABLET (FP) PO ONE ×2 (20:41→20:46)
[2022-05-26] MEDS ORDERED: METOPROLOL TARTRATE 50 MG TABLET (FP) PO ONE (20:41)
[2022-05-26] MEDS ORDERED: ACETAMINOPHEN 1000 MG/100 ML BAG IVPB PRN (20:44)
[2022-05-26] MEDS ORDERED: lamoTRIgine 100 MG TABLET ONE (20:46)
[2022-05-26] MEDS ORDERED: METOPROLOL TARTRATE 50 MG TABLET (FP) ONE (20:46)
[2022-05-27] MEDS: morphine SULFATE 4 MG/ML VIAL IVPUSH PRN ×2 (02:03→09:05)
[2022-05-27 02:35] VITALS: BMI 23.9
[2022-05-27 09:01] LABS: BASO % 0.7 % (0-2.0); EOS % 1.5 % (0-4.5); HEMATOCRIT 35.9 % (35.4-49); HEMOGLOBIN 12.4 GM/dL (11.7-16.9); LYMPH % 23.4 % (8-40); MCH 30.9 pg (25.7-33.7); MCHC 34.6 g/dl (32.0-35.9); MEAN CELL VOLUME 89.4 fl (80-96); MEAN PLT VOLUME 7.8 fl (7.5-11.1); MONO % 13.1 % (3.8-10.2); NEUT % 61.3 % (42.8-82.8); PLATELET COUNT 188 10^3/uL (134-434); RBC 4.02 M/mm3 (4.00-5.60); RDW 15.6 % (11.9-15.9); WHITE BLOOD COUNT 6.9 K/mm3 (4.0-10.0)
[2022-05-27] MEDS: FOLIC ACID 1 MG TABLET (FP) PO SCH (09:06)
[2022-05-27] MEDS: ASPIRIN COATED 81 MG TABLET.EC PO SCH (09:06)
[2022-05-27] MEDS: levETIRAcetam 500 MG TABLET (FP) PO SCH ×2 (09:06→21:05)
[2022-05-27 09:18] LABS: CALCIUM 8.8 mg/dL (8.5-10.1)
[2022-05-27 09:19] LABS: BLOOD UREA NITROGEN 16.1 mg/dL (7-18)
[2022-05-27] MEDS: LIDOCAINE 5% TOPICAL PATCH TP SCH (09:19)
[2022-05-27] MEDS: lamoTRIgine 100 MG TABLET PO SCH ×2 (09:19→21:05)
[2022-05-27 09:22] LABS: CREATININE 0.9 mg/dL (0.55-1.3)
[2022-05-27] MEDS: LOSARTAN POTASSIUM 25 MG TABLET PO SCH (13:16)
[2022-05-27] MEDS ORDERED: SODIUM CHLORIDE 0.45% 1,000 ML IV SCH (15:00)
[2022-05-27] MEDS ORDERED: SODIUM ZIRCONIUM CYCLOSILICATE (LOKELMA) 5 GM PACKET PO SCH (15:00)
[2022-05-27] MEDS: ATORVASTATIN CA 10 MG TABLET (FP) PO SCH (21:05)
[2022-05-27] MEDS: LIDOCAINE PATCH REMOVAL MC SCH (21:11)
[2022-05-28] MEDS: ACETAMINOPHEN 325 MG TABLET (FP) PO PRN (06:42)
[2022-05-28] MEDS: levETIRAcetam 500 MG TABLET (FP) PO SCH ×2 (09:29→21:37)
[2022-05-28] MEDS: FOLIC ACID 1 MG TABLET (FP) PO SCH (09:29)
[2022-05-28] MEDS: ASPIRIN COATED 81 MG TABLET.EC PO SCH (09:29)
[2022-05-28] MEDS: lamoTRIgine 100 MG TABLET PO SCH ×2 (09:29→21:36)
[2022-05-28] MEDS: LIDOCAINE 5% TOPICAL PATCH TP SCH (09:29)
[2022-05-28 11:47] LABS: HEMATOCRIT 35.1 % (35.4-49); HEMOGLOBIN 12.1 GM/dL (11.7-16.9); MCH 30.9 pg (25.7-33.7); MCHC 34.5 g/dl (32.0-35.9); MEAN CELL VOLUME 89.6 fl (80-96); MEAN PLT VOLUME 8.4 fl (7.5-11.1); PLATELET COUNT 193 10^3/uL (134-434); RBC 3.92 M/mm3 (4.00-5.60); RDW 15.2 % (11.9-15.9)
[2022-05-28 13:41] LABS: ALBUMIN 3.2 g/dl (3.4-5.0); BILIRUBIN,TOTAL 0.7 mg/dL (0.2-1); CREATININE 0.9 mg/dL (0.55-1.3); TOT PROT 6.1 g/dl (6.4-8.2)
[2022-05-28] MEDS: LOSARTAN POTASSIUM 25 MG TABLET PO SCH (14:22)
[2022-05-28] MEDS: morphine SULFATE 4 MG/ML VIAL IVPUSH PRN ×2 (16:17→21:53)
[2022-05-28] MEDS: LIDOCAINE PATCH REMOVAL MC SCH (21:37)
[2022-05-28] MEDS: rOPINIRole HCL 1 MG TABLET (FP) PO SCH (21:37)
[2022-05-28] MEDS: ATORVASTATIN CA 10 MG TABLET (FP) PO SCH (21:37)
[2022-05-29] MEDS: rOPINIRole HCL 1 MG TABLET (FP) PO SCH ×3 (06:17→21:29)
[2022-05-29] MEDS: LIDOCAINE 5% TOPICAL PATCH TP SCH (11:32)
[2022-05-29] MEDS: levETIRAcetam 500 MG TABLET (FP) PO SCH ×2 (11:32→21:29)
[2022-05-29] MEDS: lamoTRIgine 100 MG TABLET PO SCH ×2 (11:32→21:29)
[2022-05-29] MEDS: ASPIRIN COATED 81 MG TABLET.EC PO SCH (11:32)
[2022-05-29] MEDS: FOLIC ACID 1 MG TABLET (FP) PO SCH (11:33)
[2022-05-29] MEDS: LOSARTAN POTASSIUM 25 MG TABLET PO SCH (14:19)
[2022-05-29] MEDS: morphine SULFATE 4 MG/ML VIAL IVPUSH PRN (18:17)
[2022-05-29 19:12] LABS: BF WBC & OTHER NUCLEATED CELLS 2099 /mm3
[2022-05-29 20:32] LABS: BODY FLUID MONOCYTE 10 %; BODYL FLD EOSINOPHIL 1 %
[2022-05-29] MEDS: ATORVASTATIN CA 10 MG TABLET (FP) PO SCH (21:29)
[2022-05-29] MEDS: LIDOCAINE PATCH REMOVAL MC SCH (21:30)
[2022-05-30] MEDS: rOPINIRole HCL 1 MG TABLET (FP) PO SCH ×3 (06:05→21:14)
[2022-05-30] MEDS: morphine SULFATE 4 MG/ML VIAL IVPUSH PRN (08:10)
[2022-05-30] MEDS: ASPIRIN COATED 81 MG TABLET.EC PO SCH (09:55)
[2022-05-30] MEDS: FOLIC ACID 1 MG TABLET (FP) PO SCH (09:55)
[2022-05-30] MEDS: levETIRAcetam 500 MG TABLET (FP) PO SCH ×2 (09:55→21:13)
[2022-05-30] MEDS: lamoTRIgine 100 MG TABLET PO SCH ×2 (09:55→21:14)
[2022-05-30] MEDS: LIDOCAINE 5% TOPICAL PATCH TP SCH (09:55)
[2022-05-30] MEDS: LOSARTAN POTASSIUM 25 MG TABLET PO SCH (14:56)
[2022-05-30] MEDS: ATORVASTATIN CA 10 MG TABLET (FP) PO SCH (21:14)
[2022-05-30] MEDS: ACETAMINOPHEN 325 MG TABLET (FP) PO PRN (21:16)
[2022-05-30] MEDS: LIDOCAINE PATCH REMOVAL MC SCH (21:16)
[2022-05-31 05:13] VITALS: BP 126/65; PULSE 83; TEMP 98.1
[2022-05-31] MEDS: rOPINIRole HCL 1 MG TABLET (FP) PO SCH ×2 (06:36→14:16)
[2022-05-31] MEDS: levETIRAcetam 500 MG TABLET (FP) PO SCH (10:37)
[2022-05-31] MEDS: FOLIC ACID 1 MG TABLET (FP) PO SCH (10:37)
[2022-05-31] MEDS: lamoTRIgine 100 MG TABLET PO SCH (10:37)
[2022-05-31] MEDS: ASPIRIN COATED 81 MG TABLET.EC PO SCH (10:37)
[2022-05-31] MEDS: LIDOCAINE 5% TOPICAL PATCH TP SCH (10:37)
[2022-05-31] MEDS: LOSARTAN POTASSIUM 25 MG TABLET PO SCH (14:16)
[2022-06-02 14:17] LABS: BODY FLUID ALBUMIN 2.4 g/dL (Not Estab.)
== END 2022-05-31 17:12 | disposition home or self-care (01) | DRG 200 ==
LOC: JER 13:07 → JERFT 13:07 → JERBED 19:52 → OBSVTOIN 19:52 → J6S 05-27 01:33
PROVIDERS: ADMIT Internal Medicine; ATTEND Family Medicine
PROC: 0W9B3ZZ Drainage of Left Pleural Cavity, Percutaneous Approach (ICD-10-PCS; principal; 2022-05-29)
DX: S27.1XXA Traumatic hemothorax, initial encounter (principal); J90 Pleural effusion, not elsewhere classified; S22.42XA Multiple fractures of ribs, left side, initial encounter for closed fracture; J98.11 Atelectasis; I10 Essential (primary) hypertension; E78.5 Hyperlipidemia, unspecified; R29.6 Repeated falls; E86.0 Dehydration; R07.81 Pleurodynia; I12.9 Hypertensive chronic kidney disease with stage 1 through stage 4 chronic kidney disease, or unspecified chronic kidney disease; N18.9 Chronic kidney disease, unspecified; G40.909 Epilepsy, unspecified, not intractable, without status epilepticus; G20 Parkinson's disease; E87.5 Hyperkalemia; Z86.718 Personal history of other venous thrombosis and embolism; Z90.5 Acquired absence of kidney; Z52.4 Kidney donor; W18.30XA Fall on same level, unspecified, initial encounter; Y92.098 Other place in other non-institutional residence as the place of occurrence of the external cause
CPT/HCPCS: 0241U-QW; 36415; 70450-TC; 71045-TC-FY; 71260-TC; 72125-TC; 74177-TC; 76775-TC; 76942; 80048; 80053; 80175; 80177; 82042; 82150; 82465; 82945; 83615; 84157; 84478; 85025; 85027; 85610; 85730; 86850; 86900; 86901; 87070; 87075; 87102; 87116; 87205; 87206; 87210; 88108; 88305-TC; 93005; 93010; 94010; 97116-GP; 99285-25; Q9967

== ENCOUNTER 2023-06-09 15:26 | Emergency (ER) | payer OTHER ==
[2023-06-09 16:10] VITALS: BP 125/72; PULSE 81; RESP 18; TEMP 98; BMI 24.3
[2023-06-09] MEDS ORDERED: DIPHTH,PERTUSS(ACELL),TET 0.5 ML DISP.SYRIN IM ONE ×2 (17:39→17:44)
== END 2023-06-09 20:32 | disposition home or self-care (01) ==
LOC: JER 15:26
PROC: 3E0234Z Introduction of Serum, Toxoid and Vaccine into Muscle, Percutaneous Approach (ICD-10-PCS; principal; 2023-06-09)
DX: S00.212A Abrasion of left eyelid and periocular area, initial encounter (principal); W01.0XXA Fall on same level from slipping, tripping and stumbling without subsequent striking against object, initial encounter
CPT/HCPCS: 70450-TC; 72125-TC; 90471; 90715; 99284-25

== ENCOUNTER 2024-03-17 16:23 | Emergency (ER) | payer OTHER ==
[2024-03-17 16:46] VITALS: BP 124/64; PULSE 105; RESP 18; TEMP 97.9; BMI 23.5
[2024-03-17] MEDS ORDERED: ACETAMINOPHEN INJECTION 100 ML IVPB ONE (17:50)
[2024-03-17] MEDS: ACETAMINOPHEN 1000 MG/100 ML BAG IVPB ONE (18:04)
[2024-03-17] MEDS: ACETAMINOPHEN 325 MG TABLET (FP) PO ONE (18:08)
[2024-03-17 18:16] LABS: BASO % 0.5 % (0-2.0); EOS % 0.9 % (0-4.5); HEMATOCRIT 39.3 % (35.4-49); HEMOGLOBIN 13.7 GM/dL (11.7-16.9); LYMPH % 18.9 % (8-40); MCH 30.9 pg (25.7-33.7); MCHC 34.8 g/dl (32.0-35.9); MEAN CELL VOLUME 88.6 fl (80-96); MEAN PLT VOLUME 6.8 fl (7.5-11.1); MONO % 11.7 % (3.8-10.2); PLATELET COUNT 305 10^3/uL (134-434); RBC 4.44 M/mm3 (4.00-5.60); RDW 13.3 % (11.9-15.9)
[2024-03-17 18:46] LABS: POTASSIUM 4.5 mmol/L (3.5-5.1)
[2024-03-17 18:47] LABS: CALCIUM 8.9 mg/dL (8.5-10.1)
[2024-03-17 18:49] LABS: ALBUMIN 3.6 g/dl (3.4-5.0)
[2024-03-17 18:52] LABS: CREATININE 1.2 mg/dL (0.55-1.3); TOT PROT 6.7 g/dl (6.4-8.2)
[2024-03-17 18:54] LABS: BILIRUBIN,TOTAL 0.4 mg/dL (0.2-1)
[2024-03-17 19:26] LABS: INR 1.08 (0.83-1.09); PROTHROMBIN TIME (PATIENT) 12.2 SEC (9.7-13.0)
[2024-03-17 19:29] LABS: ACTIVATED PTT 33.2 SECONDS (25.2-36.5)
== END 2024-03-17 22:11 | disposition home or self-care (01) ==
LOC: JER 16:23
PROC: 3E033NZ Introduction of Analgesics, Hypnotics, Sedatives into Peripheral Vein, Percutaneous Approach (ICD-10-PCS; principal; 2024-03-17)
DX: S32.029A Unspecified fracture of second lumbar vertebra, initial encounter for closed fracture (principal); S32.039A Unspecified fracture of third lumbar vertebra, initial encounter for closed fracture; W01.0XXA Fall on same level from slipping, tripping and stumbling without subsequent striking against object, initial encounter
CPT/HCPCS: 36415; 70450-TC; 71260-TC; 72125-TC; 74177-TC; 80053; 85025; 85610; 85730; 96374; 99285-25; J0131; Q9967

== ENCOUNTER 2024-11-18 17:19 | Emergency (ER) | payer OTHER ==
[2024-11-18 17:24] VITALS: BP 155/82; PULSE 76; RESP 18; TEMP 98; BMI 23.8
== END 2024-11-18 20:26 | disposition home or self-care (01) ==
LOC: JER 17:19
DX: S00.03XA Contusion of scalp, initial encounter (principal); W01.198A Fall on same level from slipping, tripping and stumbling with subsequent striking against other object, initial encounter
CPT/HCPCS: 70450-TC; 71046-TC-FY; 72125-TC; 72170-TC-FY; 99284-25

== ENCOUNTER 2024-12-19 12:49 | Emergency (ER) | payer OTHER ==
[2024-12-19 12:57] VITALS: BP 125/66; PULSE 81; RESP 16; TEMP 97.8; BMI 32.8
== END 2024-12-19 16:07 | disposition home or self-care (01) ==
LOC: JER 12:49
DX: S00.81XA Abrasion of other part of head, initial encounter (principal); W01.198A Fall on same level from slipping, tripping and stumbling with subsequent striking against other object, initial encounter
CPT/HCPCS: 70450-TC; 72125-TC; 99284-25

== ENCOUNTER 2025-06-28 18:10 | Emergency (ER) | payer OTHER ==
[2025-06-28 18:35] VITALS: BP 143/68; PULSE 85; RESP 18; TEMP 98.2; BMI 24.0
[2025-06-28 20:02] LABS: ABSOLUTE IMMATURE GRANULOCYTES 0.02 x10^3/uL (0.0-0.031); BASOPHILS # 0.04 x10^3/uL (0.01-0.08); EOSINOPHIL % 0.8 % (0.8-7.0); EOSINOPHILS # 0.08 x10^3/uL (0.04-0.54); MCHC 31.8 g/dl (32.3-36.5); MEAN CELL VOLUME 91.2 fl (79.0-92.2); MEAN PLT VOLUME 9.8 fl (9.4-12.4); MONOCYTE # 1.01 x10^3/uL (0.30-0.82); MONOCYTE % 10.5 % (5.3-12.2); RDW 12.8 % (12.2-16.4)
[2025-06-28 20:31] LABS: ALK PHOS 85.0 U/L (45-117); CO2 33.0 mmol/L (21-32); CREATININE 1.3 mg/dl (0.6-1.3); GLUCOSE,RANDOM 99.0 mg/dl (74-106); SGOT/AST 20.0 U/L (15-37); SGPT/ALT 11.0 U/L (7-52); TOT PROT 7.1 g/dl (6.4-8.2)
[2025-06-28 23:35] LABS: HCV DIAGNOSTIC IN-HOUSE W/RFLX NON-REACTIVE (NONREACTIVE); HIV INTERPRETATION NEGATIVE (NEGATIVE)
== END 2025-06-28 21:37 | disposition home or self-care (01) ==
LOC: FER 18:10
DX: S01.81XA Laceration without foreign body of other part of head, initial encounter (principal); S30.13XA Contusion of flank (latus) region, initial encounter; M25.552 Pain in left hip; W01.198A Fall on same level from slipping, tripping and stumbling with subsequent striking against other object, initial encounter
CPT/HCPCS: 36415; 70450-TC; 71046-TC-FY; 72125-TC; 72170-TC-FY; 80053; 83735; 84484; 85025; 86803; 87389; 93005; 99285-25